=== PATIENT | male | born 1975 | race Caucasian/White ===

== ENCOUNTER 2016-11-13 | Emergency (ER) | payer SELFPAY ==
[~2016-11-13] VITALS: Ht 185.4 cm; Wt 124.7 kg
[~2016-11-13] MED LIST: ATIVAN0.5 MG PO; LEXAPRO10 MG PO; LOPRESSOR50 MG PO; PRINIVIL10 MG PO
== END 2016-11-13 12:30 | disposition short-term general hospital (02) ==
DX: N45.3 Epididymo-orchitis (principal); G89.29 Other chronic pain; M54.5 Low back pain; E11.9 Type 2 diabetes mellitus without complications; I10 Essential (primary) hypertension; Z79.899 Other long term (current) drug therapy
CPT/HCPCS: J0696

== ENCOUNTER 2016-11-30 15:53 | Emergency (ER) | payer SELFPAY ==
[~2016-11-30] VITALS: Ht 185.4 cm; Wt 127.0 kg
== END 2016-11-30 16:25 | disposition short-term general hospital (02) ==
LOC: ER 15:53
DX: J03.90 Acute tonsillitis, unspecified (principal)